=== PATIENT | female | born 1990 | race Caucasian/White ===

== ENCOUNTER 2016-10-16 14:35 | Emergency (ER) | payer OTHER, SELFPAY ==
[2016-10-16] MEDS ORDERED: NORCO, ANEXSIA 5/325MG TABLET (HYDROcodone/ACETAMINOPHEN) As Ordered ONE (15:06)
--- NOTE | 2016-10-16 15:40 | REP ---
LEFT KNEE, FIVE VIEWS: HISTORY: Pain. There is no acute fracture or dislocation. The joint spaces are normal in appearance. IMPRESSION: There is no acute fracture or dislocation. Signed by Francois Russell MD 10/16/2016 03:43 P
--- NOTE | 2016-10-16 15:59 | EDDOCDS ---
Physician Documentation [facility] Name: Renetta Edwards Age: 26 yrs Sex: Female : 1990 Arrival Date: 10/16/2016 Time: 14:35 Bed PR Private MD: No Pcp Disposition: 10/16/16 15:41 Discharged to Home/Self Care. Impression: Pain in left knee. - Condition is Stable. - Discharge Instructions: Knee Sprain. - Prescriptions for Ultram 50 mg Oral Tablet - take 1 tablet by ORAL route every 6 hours As needed MDD: 4 tabs; 12 tablet. - Medication Reconciliation, Local Pharmacy [facility], [facility] Followup form. - Follow up: Emergency Department; When: As needed; Reason: Worsening of conditions. Follow up: [facility]; When: Call to arrange an appointment; Reason: Wound/Symptom Recheck, Recheck today's complaints, Worsening of conditions, Continuance of care. - Problem is new. - Symptoms have improved. Historical: - Allergies: No known drug Allergies; - Home Meds: 1. ibuprofen 400 mg oral tab every 6 hours as eeded (Last dose: 10/16/2016 13:15) - PMHx: Chronic Back pain; - PSHx: ; - Social history: Smoking status: Patient uses tobacco products, light tobacco smoker. No barriers to communication noted, The patient speaks fluent Indonesian. - Family history: Not pertinent. - : The pt / caregiver states he / she is not on anticoagulants. Home medication list is obtained from the patient. - Exposure Risk Screening:: None identified. 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 1 in. (154.94 cm) (R); Pain 5/10; 15:53 Pain 3/10; rs3 15:58 BP 117 / 62; Pulse 78; Resp 18; Temp 98(T); Pulse Ox 99% on R/A; Pain 3/10; rs3 14:39 Body Mass Index 27.02 (64.86 kg, 154.94 cm) gr2 MDM: 14:45 Knee, Complete Ordered. EDMS 15:05 HYDROcodone-acetaminophen 5 mg-325 mg 1 tabs PO once ordered. cc10 15:13 [facility] Payment Agreement was scanned into [employer] and attached to record. jp5 15:13 Financial registration complete. jp5 15:42 Crutches ordered. cc10 15:42 Knee Immobilizer ordered. cc10 Administered Medications: 15:10 Drug: HYDROcodone-acetaminophen 1 tabs [hydrocodone 5 mg-acetaminophen 325 mg tablet (1 rs3 tabs)] Route: PO; 15:53 Follow up: Pain 12/12 Adult rs3 Signatures: Dispatcher [employer] EDMS Sol Rojas RN RN kcs Ana Prieto RN RN rs3 Meliton Andino, PA-C PA-C cc10 Shiva Cortez jp5 The chart was reviewed and I authenticate all verbal orders and agree with the evaluation and treatment provided.Attachments: 15:13 [facility] Payment Agreement jp5 MTDD
--- NOTE | 2016-10-16 15:59 | EDDOCDS ---
Nurse's Notes [facility] Name: Renetta Edwards Age: 26 yrs Sex: Female : 1990 Arrival Date: 10/16/2016 Time: 14:35 Bed PR1 / 25 Private MD: No Pcp Diagnosis: Pain in left knee Presentation: 10/16 14:42 Presenting complaint: Patient states: last night her left knee gave out while standing kcs and now hurts to bear weight. Adult Sepsis Screening: The patient does not have new or worsening altered mentation. Patient's respiratory rate is less than 22. Systolic blood pressure is greater than 100. Patient has a qSOFA score of 0- Negative Sepsis Screen. Suicide/Homicide risk assessment- the patient denies having any suicidal and/or homicidal ideations and does not present with any other emotional, behavioral or mental health complaints. Status: Patient is not a customer service voice or dependent. Transition of care: patient was not received from another setting of care. 14:42 Acuity: MOISÉS Level 4 kcs 14:42 Method Of Arrival: Walkin/Carried/Asstd kcs Triage Assessment: 14:44 General: Appears comfortable, well developed, well nourished, well groomed, Behavior is kcs cooperative, pleasant. Pain: Location: left knee Pain currently is 5 out of 10 on a pain scale. At worst was 8 out of 10 on a pain scale. Pt Declines HIV testing. Neurological: Level of Consciousness is awake, alert. Respiratory: Airway is patent Respiratory effort is even, unlabored, Respiratory pattern is regular, symmetrical. Derm: Skin is intact, is healthy with good turgor, Skin is dry, Skin is normal. 14:47 Pain:. 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 ibuprofen 400 mg oral tab every 6 hours as eeded (Last dose: 10/16/2016 13:15) - PMHx: Chronic Back pain; - PSHx: ; - Social history: Smoking status: Patient uses tobacco products, light tobacco smoker. No barriers to communication noted, The patient speaks fluent Turkmen. - Family history: Not pertinent. - : The pt / caregiver states he / she is not on anticoagulants. Home medication list is obtained from the patient. - Exposure Risk Screening:: None identified. Screenin:56 Screening information is obtained from the patient. Fall risk: No risks identified. rs3 Assistance ADL's: requires no assistance with activities of daily living. Abuse/DV Screen: The patient / caregiver reports he/she is: not in a situation that causes fear, pain or injury. Nutritional screening: No deficits noted. Advance Directives: Currently, there is no health care proxy. There is no active DNR order. home support is adequate. Assessment: 15:55 General: Appears in no apparent distress, Behavior is appropriate for age, cooperative. rs3 Pain: Location: left knee Pain currently is 3 out of 10 on a pain scale. Neurological: Level of Consciousness is awake, alert, Oriented to person, place, time. Respiratory: Airway is patent Respiratory effort is even, unlabored. Derm: Skin is pink, warm & dry. Musculoskeletal: Circulation, motion, and sensation intact Capillary refill < 3 seconds Range of motion intact in all extremities. Signs and Symptoms of Compartment Syndrome: no signs of compartment syndrome. Vital Signs: 14:39 BP 116 / 57; Pulse 89; Resp 18 S; Temp 96.1(O); Pulse Ox 99% on R/A; Weight 64.86 kg gr2 (R); Height 5 ft. 1 in. (154.94 cm) (R); Pain 5/10; 15:53 Pain 3/10; rs3 15:58 BP 117 / 62; Pulse 78; Resp 18; Temp 98(T); Pulse Ox 99% on R/A; Pain 3/10; rs3 14:39 Body Mass Index 27.02 (64.86 kg, 154.94 cm) gr2 Vitals: 14:39 Log In Time: October 16, 2016 at 14:39. gr2 ED Course: 14:38 Patient visited by Prachi Rodriguez. gr2 14:38 No Pcp is Private Physician. gr2 14:38 Patient moved to Waiting gr2 14:40 Patient visited by Prachi Rodriguez. gr2 14:41 Patient moved to Pre RCE gr2 14:42 Triage Initiated kcs 14:48 Patient moved to Triage 2 mk4 15:02 [facility] cc10 15:02 Pradeep Waddell MD is Attending Physician. cc10 15:02 Patient visited by Meliton Andino PA-C. cc10 15:02 Patient visited by Meliton Andino PA-C. cc10 15:08 Patient moved to TR2 rs3 15:10 Patient name changed from Renetta\S\\S\Heussman\S\ to Renetta\S\Alyssia\S\Heussman. EDMS 15:13 [facility] Payment Agreement was scanned into [employer] and attached to record. jp5 15:26 Patient moved to PR 4 15:40 [facility] is Referral Physician. cc10 15:57 The patient / caregiver is instructed regarding the plan of care and ED course. rs3 15:57 No IV's were initiated during this patient's visit. No procedures done that require rs3 assistance. Administered Medications: 15:10 Drug: HYDROcodone-acetaminophen 1 tabs [hydrocodone 5 mg-acetaminophen 325 mg tablet (1 rs3 tabs)] Route: PO; 15:53 Follow up: Pain 12/12 Adult rs3 Order Results: There are currently no results for this order. Outcome: 15:41 Discharge ordered by Provider. cc10 15:56 Discharge Assessment: patient administered narcotics - no. The following High Risk rs3 Discharge criteria are identified: None. Discharged to home with family. Condition: stable. Discharge instructions given to patient, Instructed on discharge instructions, follow up and referral plans. medication usage, no driving heavy equipment, Rest, Ice, Compression and Elevation. crutch walking. No special radiology studies were completed. Property :Personal belongings accompany Pt. 15:58 Patient left the ED. rs3 Signatures: Dispatcher [employer] EDWI Sol Rojas RN RN [facility] Ana Prieto RN RN rs3 Prachi Rodriguez 2 Katherine Amaral RN RN 4 Meliton Andino PA-C PA-C cc10 CortezTawnyarmin jp5 MTDD
--- NOTE | 2016-10-18 16:59 | EDDOCDS ---
Physician Documentation [facility] Name: Renetta Edwards Age: 26 yrs Sex: Female : 1990 Arrival Date: 10/16/2016 Time: 14:35 Bed PR Private MD: No Pcp Disposition: 10/16/16 15:41 Discharged to Home/Self Care. Impression: Pain in left knee. - Condition is Stable. - Discharge Instructions: Knee Sprain. - Prescriptions for Ultram 50 mg Oral Tablet - take 1 tablet by ORAL route every 6 hours As needed MDD: 4 tabs; 12 tablet. - Medication Reconciliation, Local Pharmacy [facility], [facility] Followup form. - Follow up: Emergency Department; When: As needed; Reason: Worsening of conditions. Follow up: [facility]; When: Call to arrange an appointment; Reason: Wound/Symptom Recheck, Recheck today's complaints, Worsening of conditions, Continuance of care. - Problem is new. - Symptoms have improved. Historical: - Allergies: No known drug Allergies; - Home Meds: 1. ibuprofen 400 mg oral tab every 6 hours as eeded (Last dose: 10/16/2016 13:15) - PMHx: Chronic Back pain; - PSHx: ; - Social history: Smoking status: Patient uses tobacco products, light tobacco smoker. No barriers to communication noted, The patient speaks fluent Namibian. - Family history: Not pertinent. - : The pt / caregiver states he / she is not on anticoagulants. Home medication list is obtained from the patient. - Exposure Risk Screening:: None identified. 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 1 in. (154.94 cm) (R); Pain 5/10; 15:53 Pain 3/10; rs3 15:58 BP 117 / 62; Pulse 78; Resp 18; Temp 98(T); Pulse Ox 99% on R/A; Pain 3/10; rs3 14:39 Body Mass Index 27.02 (64.86 kg, 154.94 cm) gr2 MDM: 14:45 Knee, Complete Ordered. EDMS 15:05 HYDROcodone-acetaminophen 5 mg-325 mg 1 tabs PO once ordered. cc10 15:13 [facility] Payment Agreement was scanned into [employer] and attached to record. jp5 15:13 Financial registration complete. jp5 15:42 Crutches ordered. cc10 15:42 Knee Immobilizer ordered. cc10 10/17 10:19 T-Sheet-- Draft Copy was scanned into [employer] and attached to record. gb Administered Medications: 10/16 15:10 Drug: HYDROcodone-acetaminophen 1 tabs [hydrocodone 5 mg-acetaminophen 325 mg tablet (1 rs3 tabs)] Route: PO; 15:53 Follow up: Pain 12/12 Adult rs3 Signatures: Dispatcher [employer] Sol Heck RN RN kcs Sonya Mendez, Reg Reg gb Ana Prieto RN RN rs3 Meliton Andino, PA-C PA-C cc10 Shiva Cortez 5 The chart was reviewed and I authenticate all verbal orders and agree with the evaluation and treatment provided.Attachments: 15:13 [facility] Payment Agreement jp5 10/17 10:19 T-Sheet-- Draft Copy gb Chart Complete MTDD
--- NOTE | 2016-10-18 16:59 | EDDOCDS ---
Physician Documentation [facility] Name: Renetta Edwards Age: 26 yrs Sex: Female : 1990 Arrival Date: 10/16/2016 Time: 14:35 Bed PR Private MD: No Pcp Disposition: 10/16/16 15:41 Discharged to Home/Self Care. Impression: Pain in left knee. - Condition is Stable. - Discharge Instructions: Knee Sprain. - Prescriptions for Ultram 50 mg Oral Tablet - take 1 tablet by ORAL route every 6 hours As needed MDD: 4 tabs; 12 tablet. - Medication Reconciliation, Local Pharmacy [facility], [facility] Followup form. - Follow up: Emergency Department; When: As needed; Reason: Worsening of conditions. Follow up: [facility]; When: Call to arrange an appointment; Reason: Wound/Symptom Recheck, Recheck today's complaints, Worsening of conditions, Continuance of care. - Problem is new. - Symptoms have improved. Historical: - Allergies: No known drug Allergies; - Home Meds: 1. ibuprofen 400 mg oral tab every 6 hours as eeded (Last dose: 10/16/2016 13:15) - PMHx: Chronic Back pain; - PSHx: ; - Social history: Smoking status: Patient uses tobacco products, light tobacco smoker. No barriers to communication noted, The patient speaks fluent Swedish. - Family history: Not pertinent. - : The pt / caregiver states he / she is not on anticoagulants. Home medication list is obtained from the patient. - Exposure Risk Screening:: None identified. 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 1 in. (154.94 cm) (R); Pain 5/10; 15:53 Pain 3/10; rs3 15:58 BP 117 / 62; Pulse 78; Resp 18; Temp 98(T); Pulse Ox 99% on R/A; Pain 3/10; rs3 14:39 Body Mass Index 27.02 (64.86 kg, 154.94 cm) gr2 MDM: 14:45 Knee, Complete Ordered. EDMS 15:05 HYDROcodone-acetaminophen 5 mg-325 mg 1 tabs PO once ordered. cc10 15:13 [facility] Payment Agreement was scanned into [employer] and attached to record. jp5 15:13 Financial registration complete. jp5 15:42 Crutches ordered. cc10 15:42 Knee Immobilizer ordered. cc10 10/17 10:19 T-Sheet-- Draft Copy was scanned into [employer] and attached to record. gb Administered Medications: 10/16 15:10 Drug: HYDROcodone-acetaminophen 1 tabs [hydrocodone 5 mg-acetaminophen 325 mg tablet (1 rs3 tabs)] Route: PO; 15:53 Follow up: Pain 12/12 Adult rs3 Signatures: Dispatcher [employer] Sol Heck RN RN kcs Sonya Mendez, Reg Reg gb Ana Prieto RN RN rs3 Meliton Andino, PA-C PA-C cc10 Shiva Cortez 5 The chart was reviewed and I authenticate all verbal orders and agree with the evaluation and treatment provided.Attachments: 15:13 [facility] Payment Agreement jp5 10/17 10:19 T-Sheet-- Draft Copy gb Chart Complete MTDD
--- NOTE | 2016-10-18 17:00 | EDDOCDS ---
Nurse's Notes [facility] Name: Renetta Edwards Age: 26 yrs Sex: Female : 1990 Arrival Date: 10/16/2016 Time: 14:35 Bed PR1 / 25 Private MD: No Pcp Diagnosis: Pain in left knee Presentation: 10/16 14:42 Presenting complaint: Patient states: last night her left knee gave out while standing kcs and now hurts to bear weight. Adult Sepsis Screening: The patient does not have new or worsening altered mentation. Patient's respiratory rate is less than 22. Systolic blood pressure is greater than 100. Patient has a qSOFA score of 0- Negative Sepsis Screen. Suicide/Homicide risk assessment- the patient denies having any suicidal and/or homicidal ideations and does not present with any other emotional, behavioral or mental health complaints. 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 Transition of care: patient was not received from another setting of care. 14:42 Acuity: MOISÉS Level 4 kcs 14:42 Method Of Arrival: Walkin/Carried/Asstd kcs Triage Assessment: 14:44 General: Appears comfortable, well developed, well nourished, well groomed, Behavior is kcs cooperative, pleasant. Pain: Location: left knee Pain currently is 5 out of 10 on a pain scale. At worst was 8 out of 10 on a pain scale. Pt Declines HIV testing. Neurological: Level of Consciousness is awake, alert. Respiratory: Airway is patent Respiratory effort is even, unlabored, Respiratory pattern is regular, symmetrical. Derm: Skin is intact, is healthy with good turgor, Skin is dry, Skin is normal. 14:47 Pain:. 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 ibuprofen 400 mg oral tab every 6 hours as eeded (Last dose: 10/16/2016 13:15) - PMHx: Chronic Back pain; - PSHx: ; - Social history: Smoking status: Patient uses tobacco products, light tobacco smoker. No barriers to communication noted, The patient speaks fluent Cook Islander. - Family history: Not pertinent. - : The pt / caregiver states he / she is not on anticoagulants. Home medication list is obtained from the patient. - Exposure Risk Screening:: None identified. Screenin:56 Screening information is obtained from the patient. Fall risk: No risks identified. rs3 Assistance ADL's: requires no assistance with activities of daily living. Abuse/DV Screen: The patient / caregiver reports he/she is: not in a situation that causes fear, pain or injury. Nutritional screening: No deficits noted. Advance Directives: Currently, there is no health care proxy. There is no active DNR order. home support is adequate. Assessment: 15:55 General: Appears in no apparent distress, Behavior is appropriate for age, cooperative. rs3 Pain: Location: left knee Pain currently is 3 out of 10 on a pain scale. Neurological: Level of Consciousness is awake, alert, Oriented to person, place, time. Respiratory: Airway is patent Respiratory effort is even, unlabored. Derm: Skin is pink, warm & dry. Musculoskeletal: Circulation, motion, and sensation intact Capillary refill < 3 seconds Range of motion intact in all extremities. Signs and Symptoms of Compartment Syndrome: no signs of compartment syndrome. Vital Signs: 14:39 BP 116 / 57; Pulse 89; Resp 18 S; Temp 96.1(O); Pulse Ox 99% on R/A; Weight 64.86 kg gr2 (R); Height 5 ft. 1 in. (154.94 cm) (R); Pain 5/10; 15:53 Pain 3/10; rs3 15:58 BP 117 / 62; Pulse 78; Resp 18; Temp 98(T); Pulse Ox 99% on R/A; Pain 3/10; rs3 14:39 Body Mass Index 27.02 (64.86 kg, 154.94 cm) gr2 Vitals: 14:39 Log In Time: October 16, 2016 at 14:39. gr2 ED Course: 14:38 Patient visited by Prachi Rodriguez. gr2 14:38 No Pcp is Private Physician. gr2 14:38 Patient moved to Waiting gr2 14:40 Patient visited by Prachi Rodriguez. gr2 14:41 Patient moved to Pre RCE gr2 14:42 Triage Initiated kcs 14:48 Patient moved to Triage 2 mk4 15:02 Meliton Andino [facility] cc10 15:02 Pradeep Waddell MD is Attending Physician. cc10 15:02 Patient visited by Meliton Andino PA-C. cc10 15:02 Patient visited by Meliton Andino PA-C. cc10 15:08 Patient moved to TR2 rs3 15:10 Patient name changed from Renetta\S\\S\Heussman\S\ to Renetta\S\Alyssia\S\Heussman. EDMS 15:13 [facility] Payment Agreement was scanned into [employer] and attached to record. jp5 15:26 Patient moved to PR mk4 15:40 [facility] is Referral Physician. cc10 15:57 The patient / caregiver is instructed regarding the plan of care and ED course. rs3 15:57 No IV's were initiated during this patient's visit. No procedures done that require rs3 assistance. 15:59 Knee, Complete Returned. EDMS 10/17 10:19 T-Sheet-- Draft Copy was scanned into [employer] and attached to record. gb Administered Medications: 10/16 15:10 Drug: HYDROcodone-acetaminophen 1 tabs [hydrocodone 5 mg-acetaminophen 325 mg tablet (1 rs3 tabs)] Route: PO; 15:53 Follow up: Pain 12/12 Adult rs3 Order Results: Radiology Order: Knee, Complete Test: Knee, Complete REASON FOR EXAMINATION: LEFT KNEE PAIN; LEFT KNEE, FIVE VIEWS:; ; HISTORY: Pain.; ; There is no acute fracture or dislocation. The joint spaces are normal in; appearance.; ; IMPRESSION:; ; There is no acute fracture or dislocation.; ; ; Signed by; Francois Russell MD 10/16/2016 03:43 P; Outcome: 15:41 Discharge ordered by Provider. cc10 15:56 Discharge Assessment: patient administered narcotics - no. The following High Risk rs3 Discharge criteria are identified: None. Discharged to home with family. Condition: stable. Discharge instructions given to patient, Instructed on discharge instructions, follow up and referral plans. medication usage, no driving heavy equipment, Rest, Ice, Compression and Elevation. crutch walking. No special radiology studies were completed. Property :Personal belongings accompany Pt. 15:58 Patient left the ED. rs3 Signatures: [facility] Sol Rojas RN RN kcs Barnhardt, Gloria, Reg Reg gb Ana Prieto,RN RN rs3 Prachi Rodriguez gr2 Katherine Amaral RN RN mk4 Meliton Andino PA-C PA-C cc10 Shiva Cortez jp5 Chart Complete MTDD
== END 2016-10-16 15:58 | disposition home or self-care (01) ==
LOC: EDSEX 14:35 → M ED 14:35
DX: S83.402A Sprain of unspecified collateral ligament of left knee, initial encounter (principal); W19.XXXA Unspecified fall, initial encounter; Y92.89 Other specified places as the place of occurrence of the external cause; Y93.89 Activity, other specified; Y99.8 Other external cause status; M54.9 Dorsalgia, unspecified; F17.210 Nicotine dependence, cigarettes, uncomplicated